=== PATIENT | male | born 1960 | race Caucasian/White ===

== ENCOUNTER 2017-11-20 15:56 | Observation (INO) | payer MEDICARE ==
[~2017-11-20] VITALS: Ht 170.2 cm; Wt 84.1 kg
[2017-11-20 16:17] LABS: BASOPHILS 0.2 % (0-2); EOSINOPHILS 0.2 % (0-7); HEMATOCRIT 51.5 % (42.0-54.0); HEMOGLOBIN 17.5 g/dL (13.5-17.5); IMMATURE GRANULOCYTES 0.2 % (0-5); LYMPHOCYTES 13.8 % (15-50); MCH 34.9 pg (26.0-34.0); MCV 102.8 fL (80.0-100.0); MEAN PLATELET VOLUME 10.9 fL (7.4-10.4); MONOCYTES 7.2 % (2-11); NEUTROPHILS 78.4 % (40-80); PLATELET COUNT 66 10x3/uL (130-400); RBC 5.01 10x6/uL (4.20-6.10); RDW 14.4 % (11.5-14.5)
[2017-11-20 16:28] LABS: ALBUMIN 4.9 g/dL (3.4-5.0); ANION GAP 24.2 mmol/L (8-16); BILIRUBIN - TOTAL 1.1 mg/dL (0.2-1.3); CALCIUM 9.6 mg/dL (8.5-10.1); CARBON DIOXIDE 21.5 mmol/L (21.0-32.0); CREATININE - SERUM 1.2 mg/dL (0.6-1.3); MAGNESIUM - SERUM 1.5 mg/dL (1.8-2.4); POTASSIUM - SERUM 3.7 mmol/L (3.5-5.1); PROTEIN - SERUM 9.3 g/dL (6.4-8.2)
[2017-11-20 16:33] LABS: PLATELET ESTIMATE DECREASED
[2017-11-20 16:57] LABS: APPEARANCE HAZY (CLEAR); BILIRUBIN NEGATIVE (NEGATIVE); COLOR DK YELLOW (YELLOW); GLUCOSE NEGATIVE (NEGATIVE); KETONE MODERATE mg/dL (NEGATIVE); NITRITE NEGATIVE (NEGATIVE); PROTEIN 2+ mg/dL (NEGATIVE); SPECIFIC GRAVITY 1.005 (1.005-1.020); UROBILINOGEN NORMAL (NORMAL)
[2017-11-20 16:59] LABS: BACTERIA MODERATE /hpf (NONE SEEN); RED CELLS - URINE 0-5 /hpf (0-5); WHITE CELLS - URINE 0-5 /hpf (0-5)
[2017-11-20 17:05] LABS: UDS - AMPHET NEGATIVE QUAL (NEGATIVE); UDS - BARB NEGATIVE QUAL (NEGATIVE); UDS - BENZO POSITIVE QUAL (NEGATIVE); UDS - COCAINE POSITIVE QUAL (NEGATIVE); UDS - OPIATE NEGATIVE QUAL (NEGATIVE); UDS - PCP NEGATIVE QUAL (NEGATIVE); UDS - THC NEGATIVE QUAL (NEGATIVE)
[2017-11-20] MEDS ORDERED: ACETAMINOPHEN500 M1 PO (23:52)
[2017-11-21 02:37] VITALS: BP 160/98; Ht 170.2 cm; Wt 84.1 kg
[2017-11-21 05:06] VITALS: BP 160/95
[2017-11-21 05:11] LABS: BASOPHILS 0.2 % (0-2); EOSINOPHILS 1.4 % (0-7); HEMATOCRIT 46.2 % (42.0-54.0); HEMOGLOBIN 15.9 g/dL (13.5-17.5); IMMATURE GRANULOCYTES 0.2 % (0-5); LYMPHOCYTES 17.4 % (15-50); MCH 34.9 pg (26.0-34.0); MCHC 34.4 g/dL (31.0-37.0); MCV 101.3 fL (80.0-100.0); MEAN PLATELET VOLUME 10.8 fL (7.4-10.4); MONOCYTES 7.9 % (2-11); NEUTROPHILS 72.9 % (40-80); RBC 4.56 10x6/uL (4.20-6.10); RDW 14.3 % (11.5-14.5); WBC 5.1 10x3/uL (4.8-10.8)
[2017-11-21 05:31] LABS: PLATELET COUNT 47 10x3/uL (130-400)
[2017-11-21 06:08] LABS: ALBUMIN 3.4 g/dL (3.4-5.0); ALKALINE PHOSPHATASE 120 U/L (46-116); ALT (SGPT) 68 U/L (10-68); CALC OSMOLALITY 268 mosm/kg (275-300); CALCIUM 8.9 mg/dL (8.5-10.1); CARBON DIOXIDE 30.4 mmol/L (21.0-32.0); CHLORIDE - SERUM 94 mmol/L (98-107); CREATININE - SERUM 0.9 mg/dL (0.6-1.3); GLUCOSE 76 mg/dL (74-106); POTASSIUM - SERUM 3.1 mmol/L (3.5-5.1); PROTEIN - SERUM 8.1 g/dL (6.4-8.2); SODIUM 135 mmol/L (136-145); UREA NITROGEN 13 mg/dL (7-18); eGFR NON AFRICAN AMERICAN > 90 mL/min (90-120)
[2017-11-21 08:11] VITALS: BP 145/89
[2017-11-21 12:21] VITALS: BP 129/85
[2017-11-21] MEDS ORDERED: PROTONIX40 MG PO (16:37)
[2017-11-21] MEDS ORDERED: LEVAQUIN500 MG PO (16:38)
== END 2017-11-21 18:30 | disposition home or self-care (01) ==
LOC: D.ER 15:56 → D.EDHOLD 19:11 → OBSVTIME 19:11 → D.MS 19:11
PROVIDERS: Emergency Medicine; Family Medicine
DX: F10.231 Alcohol dependence with withdrawal delirium (principal); F14.90 Cocaine use, unspecified, uncomplicated; N39.0 Urinary tract infection, site not specified; R56.9 Unspecified convulsions

== ENCOUNTER 2018-02-13 17:52 | Emergency (ER) | payer MEDICARE ==
[~2018-02-13] VITALS: Ht 170.2 cm; Wt 89.5 kg
[~2018-02-13 17:52] MED LIST: ACETAMINOPHEN500 M1 PO; LEVAQUIN500 MG PO; PROTONIX40 MG PO
[2018-02-13 17:56] VITALS: Ht 170.2 cm; Wt 89.5 kg
[2018-02-13 18:23] LABS: BASOPHILS 0.4 % (0-2); EOSINOPHILS 2.2 % (0-7); IMMATURE GRANULOCYTES 0.2 % (0-5); MCH 36.2 pg (26.0-34.0); MCHC 35.7 g/dL (31.0-37.0); MCV 101.4 fL (80.0-100.0); MEAN PLATELET VOLUME 9.5 fL (7.4-10.4); MONOCYTES 11.3 % (2-11); NEUTROPHILS 53.9 % (40-80); RBC 4.14 10x6/uL (4.20-6.10); RDW 13.6 % (11.5-14.5)
[2018-02-13 18:26] LABS: APPEARANCE CLEAR (CLEAR); COLOR YELLOW (YELLOW); NITRITE NEGATIVE (NEGATIVE)
[2018-02-13 18:27] LABS: BILIRUBIN NEGATIVE (NEGATIVE); GLUCOSE NEGATIVE (NEGATIVE); KETONE NEGATIVE (NEGATIVE); PROTEIN TRACE mg/dL (NEGATIVE); UROBILINOGEN NORMAL (NORMAL)
[2018-02-13 18:28] LABS: BACTERIA FEW /hpf (NONE SEEN); WHITE CELLS - URINE 0-5 /hpf (0-5)
[2018-02-13 18:43] LABS: ALBUMIN 3.4 g/dL (3.4-5.0); ALKALINE PHOSPHATASE 111 U/L (46-116); ALT (SGPT) 46 U/L (10-68); BILIRUBIN - TOTAL 0.29 mg/dL (0.2-1.3); CALC OSMOLALITY 273 mosm/kg (275-300); CALCIUM 8.4 mg/dL (8.5-10.1); CHLORIDE - SERUM 98 mmol/L (98-107); CREATININE - SERUM 0.7 mg/dL (0.6-1.3); GLUCOSE 104 mg/dL (74-106); POTASSIUM - SERUM 3.5 mmol/L (3.5-5.1); PROTEIN - SERUM 7.9 g/dL (6.4-8.2); SODIUM 138 mmol/L (136-145); UDS - AMPHET NEGATIVE QUAL (NEGATIVE); UDS - BARB NEGATIVE QUAL (NEGATIVE); UDS - BENZO NEGATIVE QUAL (NEGATIVE); UDS - COCAINE POSITIVE QUAL (NEGATIVE); UDS - OPIATE NEGATIVE QUAL (NEGATIVE); UDS - PCP NEGATIVE QUAL (NEGATIVE); UDS - THC NEGATIVE QUAL (NEGATIVE); UREA NITROGEN 8 mg/dL (7-18); eGFR NON AFRICAN AMERICAN > 90 mL/min (90-120)
[2018-02-13 18:46] LABS: PLATELET COUNT 136 10x3/uL (130-400)
[2018-02-13 18:52] LABS: THYROID STIMULATING HORMONE 1.97 uIU/mL (0.36-3.74)
[2018-02-14 14:00] VITALS: BP 140/69
== END 2018-02-14 13:43 | disposition home or self-care (01) ==
LOC: D.ER 17:52
PROVIDERS: Emergency Medicine
DX: F10.129 Alcohol abuse with intoxication, unspecified (principal); R41.82 Altered mental status, unspecified; I10 Essential (primary) hypertension; F17.200 Nicotine dependence, unspecified, uncomplicated

== ENCOUNTER 2018-03-03 19:42 | Emergency (ER) | payer MEDICARE ==
[~2018-03-03] VITALS: Ht 170.2 cm; Wt 90.9 kg
[2018-03-03 20:03] VITALS: Ht 170.2 cm; Wt 90.9 kg
[2018-03-04] MEDS ORDERED: ULTRAM50 MG PO (02:34)
[2018-03-04 03:10] VITALS: BP 136/89
== END 2018-03-04 03:11 | disposition home or self-care (01) ==
LOC: D.ER 19:42
DX: M54.5 Low back pain (principal); M47.9 Spondylosis, unspecified; F17.200 Nicotine dependence, unspecified, uncomplicated

== ENCOUNTER 2018-06-01 00:04 | Emergency (ER) | payer MEDICARE ==
[~2018-06-01] VITALS: Ht 170.2 cm; Wt 79.5 kg
[~2018-06-01 00:04] MED LIST changes: +ULTRAM50 MG PO
[2018-06-01 00:06] VITALS: Ht 170.2 cm; Wt 79.5 kg
[2018-06-01 02:22] LABS: BASOPHILS 0.4 % (0-2); EOSINOPHILS 3.3 % (0-7); HEMATOCRIT 40.4 % (42.0-54.0); IMMATURE GRANULOCYTES 0.4 % (0-5); LYMPHOCYTES 30.3 % (15-50); MCH 34.9 pg (26.0-34.0); MCHC 34.7 g/dL (31.0-37.0); MCV 100.7 fL (80.0-100.0); MEAN PLATELET VOLUME 9.3 fL (7.4-10.4); MONOCYTES 8.9 % (2-11); NEUTROPHILS 56.7 % (40-80); PLATELET COUNT 145 10x3/uL (130-400); RBC 4.01 10x6/uL (4.20-6.10); RDW 13.6 % (11.5-14.5); WBC 5.4 10x3/uL (4.8-10.8)
[2018-06-01 02:31] LABS: ALBUMIN 3.5 g/dL (3.4-5.0); ALKALINE PHOSPHATASE 86 U/L (46-116); ALT (SGPT) 44 U/L (10-68); BILIRUBIN - TOTAL 0.42 mg/dL (0.2-1.3); CALC OSMOLALITY 279 mosm/kg (275-300); CALCIUM 8.5 mg/dL (8.5-10.1); CARBON DIOXIDE 32.9 mmol/L (21.0-32.0); CHLORIDE - SERUM 102 mmol/L (98-107); CREATININE - SERUM 0.9 mg/dL (0.6-1.3); GLUCOSE 87 mg/dL (74-106); MAGNESIUM - SERUM 1.4 mg/dL (1.8-2.4); POTASSIUM - SERUM 3.5 mmol/L (3.5-5.1); PROTEIN - SERUM 7.9 g/dL (6.4-8.2); SODIUM 142 mmol/L (136-145); UREA NITROGEN 6 mg/dL (7-18); eGFR NON AFRICAN AMERICAN > 90 mL/min (90-120)
[2018-06-01 09:58] VITALS: BP 173/96
== END 2018-06-01 10:00 | disposition home or self-care (01) ==
LOC: D.ER 00:04
PROVIDERS: Family Medicine
DX: F10.129 Alcohol abuse with intoxication, unspecified (principal); F10.10 Alcohol abuse, uncomplicated; F17.200 Nicotine dependence, unspecified, uncomplicated

== ENCOUNTER 2019-01-18 21:15 | Emergency (ER) | payer MEDICARE ==
[~2019-01-18] VITALS: Ht 170.2 cm; Wt 81.6 kg
[2019-01-18 21:20] VITALS: Ht 170.2 cm; Wt 81.6 kg
[2019-01-18 21:35] LABS: BASOPHILS 0.2 % (0-2); EOSINOPHILS 2.8 % (0-7); HEMATOCRIT 43.2 % (42.0-54.0); HEMOGLOBIN 15.6 g/dL (13.5-17.5); LYMPHOCYTES 33.2 % (15-50); MCH 35.1 pg (26.0-34.0); MCHC 36.1 g/dL (31.0-37.0); MCV 97.1 fL (80.0-100.0); MEAN PLATELET VOLUME 10.3 fL (7.4-10.4); NEUTROPHILS 51.8 % (40-80); RBC 4.45 10x6/uL (4.20-6.10); RDW 13.8 % (11.5-14.5); WBC 4.3 10x3/uL (4.8-10.8)
[2019-01-18 21:56] LABS: PLATELET COUNT 92 10x3/uL (130-400)
[2019-01-18 22:03] LABS: APTT 27.8 SECONDS (22.8-39.4); INR 0.88 (0.85-1.17); PROTIME 11.5 SECONDS (11.6-15.0)
[2019-01-18 22:09] LABS: ALBUMIN 3.6 g/dL (3.4-5.0); ALKALINE PHOSPHATASE 133 U/L (46-116); ALT (SGPT) 96 U/L (10-68); BILIRUBIN - TOTAL 0.63 mg/dL (0.2-1.3); CALC OSMOLALITY 264 mosm/kg (275-300); CALCIUM 8.9 mg/dL (8.5-10.1); CARBON DIOXIDE 28.9 mmol/L (21.0-32.0); CHLORIDE - SERUM 95 mmol/L (98-107); CREATININE - SERUM 0.7 mg/dL (0.6-1.3); GLUCOSE 89 mg/dL (74-106); POTASSIUM - SERUM 3.7 mmol/L (3.5-5.1); PROTEIN - SERUM 8.4 g/dL (6.4-8.2); SODIUM 134 mmol/L (136-145); UREA NITROGEN 6 mg/dL (7-18); eGFR NON AFRICAN AMERICAN > 90 mL/min (90-120)
[2019-01-18 22:22] LABS: CKMB 1.5 U/L (0.0-3.6); CREATINE KINASE 214 UL (21-232); MAGNESIUM - SERUM 1.7 mg/dL (1.8-2.4)
[2019-01-18 22:24] LABS: TROPONIN-I < 0.017 ng/mL (0.000-0.060)
[2019-01-18 22:41] LABS: PLATELET ESTIMATE DECREASED
[2019-01-19 16:02] VITALS: BP 138/72
== END 2019-01-19 16:29 | disposition home or self-care (01) ==
LOC: D.ER 21:15
PROVIDERS: Emergency Medicine
DX: F10.129 Alcohol abuse with intoxication, unspecified (principal); F10.10 Alcohol abuse, uncomplicated; R51 Headache; M54.2 Cervicalgia; R07.81 Pleurodynia; Z91.81 History of falling